=== PATIENT | female | born 1950 | race Caucasian/White ===

== ENCOUNTER 2019-03-01 10:32 | Emergency (ER) | payer MEDICARE, OTHER ==
[~2019-03-01] VITALS: Ht 167.6 cm; Wt 88.0 kg
[~2019-03-01 10:32] MED LIST: CARB200 PO; DIPH50 PO; HYDACE5 PO; PRED20 PO; RANI150 PO; ROSU10TA PO; TELM80/12.5 PO
[2019-03-01 12:31] LABS: BASOPHILS ABSOLUTE AUTO 0.02 K/mm3 (0.00-0.23); BASOPHILS PERCENT AUTO 0 % (0-2); EOSINOPHILS ABSOLUTE AUTO 0.04 K/mm3 (0.00-0.68); EOSINOPHILS PERCENT AUTO 1 % (0-6); Hematocrit 44.6 % (33.0-51.0); Hemoglobin 14.8 g/dL (11.5-16.0); IMMATURE GRAN ABSOLUTE AUTO 0.01 K/mm3 (0.00-0.10); IMMATURE GRAN PERCENT AUTO 0 % (0-1); LYMPHOCYTES ABSOLUTE AUTO 2.36 K/mm3 (0.84-5.20); LYMPHOCYTES PERCENT AUTO 34 % (21-46); MONOCYTES ABSOLUTE AUTO 0.67 K/mm3 (0.16-1.47); MONOCYTES PERCENT AUTO 10 % (4-13); Mean Corpuscular HGB 29.3 pg (26.0-34.0); Mean Corpuscular HGB Conc 33.2 g/dL (31.5-36.5); Mean Corpuscular Volume 88 fL (80-100); Mean Platelet Volume 11.3 fL (9.1-12.4); NEUTROPHILS ABSOLUTE AUTO 3.85 K/mm3 (1.96-9.15); NEUTROPHILS PERCENT AUTO 55 % (41-73); Platelet Count 242 K/mm3 (150-400); RDW Coefficient Variation 12.9 % (11.7-14.2); RDW Standard Deviation 41.6 fL (35.1-46.3); Red Blood Cell Count 5.05 M/mm3 (3.80-5.20); White Blood Cell Count 6.95 K/mm3 (4.00-11.30)
[2019-03-01 12:47] LABS: Alanine Aminotransfer (ALT/SGP 20 U/L (12-78); Albumin, Blood 4.2 g/dL (3.4-5.0); Albumin/Globulin Ratio 1.2 (0.8-1.8); Alk Phos 52 U/L (50-136); Anion Gap 7 mmol/L (6-16); Aspartate Aminotrans (AST/SGOT 12 U/L (12-37); Bilirubin, Total 0.3 mg/dL (0.1-1.0); Blood Urea Nitrogen 17 mg/dL (8-24); Bun/Creatinine Ratio 20.5 (12.0-20.0); CO2, Blood 24 mmol/L (21-32); Calcium, Blood 9.2 mg/dL (8.5-10.1); Chloride, Blood 109 mmol/L (98-108); Creatinine, Blood 0.83 mg/dL (0.40-1.00); Globulin, Blood 3.5 g/dL (2.2-4.0); Glomerular Filtration Rate >60 (60-); Glucose, Blood 92 mg/dL (70-99); Potassium, Blood 4.2 mmol/L (3.5-5.5); Sodium, Blood 140 mmol/L (136-145); Total Protein, Blood 7.7 g/dL (6.4-8.2)
[2019-03-01] MEDS ORDERED: LISI20 PO (12:57)
[2019-03-01] MEDS ORDERED: HYDR1TAB94 PO (17:03)
== END 2019-03-01 17:15 | disposition home or self-care (01) ==
LOC: ER 10:32
PROVIDERS: Physician Assistant
DX: R51 Headache (principal); I10 Essential (primary) hypertension; F17.210 Nicotine dependence, cigarettes, uncomplicated; Z87.39 Personal history of other diseases of the musculoskeletal system and connective tissue; Z88.5 Allergy status to narcotic agent; Z88.8 Allergy status to other drugs, medicaments and biological substances; Z91.030 Bee allergy status; Z79.899 Other long term (current) drug therapy
CPT/HCPCS: 36415; 70450; 80053; 85025; 96361; 96374; 96375; 99284-25; J0360; J1170; J1200; J1885; J2765; J7120

== ENCOUNTER 2019-03-17 14:55 | Emergency (ER) | payer MEDICARE, OTHER ==
[~2019-03-17] VITALS: Ht 167.6 cm; Wt 86.2 kg
[~2019-03-17 14:55] MED LIST changes: +HYDR1TAB94 PO; +LISI20 PO
[2019-03-17 15:36] LABS: BASOPHILS ABSOLUTE AUTO 0.04 K/mm3 (0.00-0.23); BASOPHILS PERCENT AUTO 0 % (0-2); EOSINOPHILS ABSOLUTE AUTO 0.03 K/mm3 (0.00-0.68); EOSINOPHILS PERCENT AUTO 0 % (0-6); Hematocrit 46.7 % (33.0-51.0); Hemoglobin 15.2 g/dL (11.5-16.0); IMMATURE GRAN ABSOLUTE AUTO 0.03 K/mm3 (0.00-0.10); IMMATURE GRAN PERCENT AUTO 0 % (0-1); LYMPHOCYTES ABSOLUTE AUTO 2.35 K/mm3 (0.84-5.20); LYMPHOCYTES PERCENT AUTO 23 % (21-46); MONOCYTES ABSOLUTE AUTO 0.79 K/mm3 (0.16-1.47); MONOCYTES PERCENT AUTO 8 % (4-13); Mean Corpuscular HGB 28.8 pg (26.0-34.0); Mean Corpuscular HGB Conc 32.5 g/dL (31.5-36.5); Mean Corpuscular Volume 88 fL (80-100); Mean Platelet Volume 11.4 fL (9.1-12.4); NEUTROPHILS ABSOLUTE AUTO 7.18 K/mm3 (1.96-9.15); NEUTROPHILS PERCENT AUTO 69 % (41-73); Platelet Count 288 K/mm3 (150-400); RDW Coefficient Variation 12.6 % (11.7-14.2); RDW Standard Deviation 41.2 fL (35.1-46.3); Red Blood Cell Count 5.28 M/mm3 (3.80-5.20); White Blood Cell Count 10.42 K/mm3 (4.00-11.30)
[2019-03-17 15:51] LABS: Alanine Aminotransfer (ALT/SGP 25 U/L (12-78); Albumin, Blood 4.2 g/dL (3.4-5.0); Albumin/Globulin Ratio 1.2 (0.8-1.8); Alk Phos 56 U/L (50-136); Anion Gap 7 mmol/L (6-16); Aspartate Aminotrans (AST/SGOT 7 U/L (12-37); Bilirubin, Total 0.4 mg/dL (0.1-1.0); Blood Urea Nitrogen 23 mg/dL (8-24); Bun/Creatinine Ratio 26.7 (12.0-20.0); CO2, Blood 25 mmol/L (21-32); Calcium, Blood 9.7 mg/dL (8.5-10.1); Chloride, Blood 107 mmol/L (98-108); Creatinine, Blood 0.86 mg/dL (0.40-1.00); Globulin, Blood 3.6 g/dL (2.2-4.0); Glomerular Filtration Rate >60 (60-); Glucose, Blood 125 mg/dL (70-99); Potassium, Blood 3.8 mmol/L (3.5-5.5); Sodium, Blood 139 mmol/L (136-145); Total Protein, Blood 7.8 g/dL (6.4-8.2)
[2019-03-17] MEDS ORDERED: VERA180ERB PO (16:20)
[2019-03-17] MEDS ORDERED: LISI20 PO (16:21)
[2019-03-17] MEDS ORDERED: Norco 5-325 Ta1 EACH PO (16:21)
[2019-03-17] MEDS ORDERED: COMPAZINE10 MG PO (16:38)
[2019-03-17] MEDS ORDERED: HYDMOR2 PO (16:38)
== END 2019-03-17 17:47 | disposition home or self-care (01) ==
LOC: ER 14:55
PROVIDERS: Emergency Medicine
DX: I10 Essential (primary) hypertension (principal); J44.9 Chronic obstructive pulmonary disease, unspecified; E78.5 Hyperlipidemia, unspecified; F17.210 Nicotine dependence, cigarettes, uncomplicated; Z79.899 Other long term (current) drug therapy
CPT/HCPCS: 36415; 70450; 80053; 85025; 93005; 93010; 96374; 96375; 96376; 99284-25; J0360; J0780; J1170; J1200; J2405

== ENCOUNTER → 2021-08-14 | Outpatient (CLI) | payer MEDICARE, OTHER ==
[~2021-08-14] MED LIST changes: +COMPAZINE10 MG PO; +HYDMOR2 PO; +Norco 5-325 Ta1 EACH PO; +VERA180ERB PO
== END ==
LOC: LAB SHORT 10:15 → LAB 10:15
DX: N30.00 Acute cystitis without hematuria (principal)
CPT/HCPCS: 87086

== ENCOUNTER 2023-08-12 12:21 | Emergency (ER) | payer MEDICARE, OTHER ==
[~2023-08-12] VITALS: Ht 167.6 cm; Wt 84.4 kg
[~2023-08-12 12:21] MED LIST changes: +GABA100 PO; +IRBE150 PO; +ONDA4 PO; +VERA240ER PO
[2023-08-12 12:42] VITALS: BP 154/110
[2023-08-12 13:13] LABS: BASOPHILS ABSOLUTE AUTO 0.04 K/mm3 (0.00-0.23); BASOPHILS PERCENT AUTO 0 % (0-2); EOSINOPHILS ABSOLUTE AUTO 0.03 K/mm3 (0.00-0.68); EOSINOPHILS PERCENT AUTO 0 % (0-6); Hematocrit 43.3 % (33.0-51.0); Hemoglobin 14.5 g/dL (11.5-16.0); IMMATURE GRAN ABSOLUTE AUTO 0.12 K/mm3 (0.00-0.10); IMMATURE GRAN PERCENT AUTO 1 % (0-1); LYMPHOCYTES PERCENT AUTO 24 % (21-46); MONOCYTES ABSOLUTE AUTO 2.54 K/mm3 (0.16-1.47); MONOCYTES PERCENT AUTO 21 % (4-13); Mean Corpuscular HGB 28.7 pg (26.0-34.0); Mean Corpuscular HGB Conc 33.5 g/dL (31.5-36.5); Mean Corpuscular Volume 86 fL (80-100); Mean Platelet Volume 10.8 fL (9.1-12.4); NEUTROPHILS ABSOLUTE AUTO 6.31 K/mm3 (1.96-9.15); NEUTROPHILS PERCENT AUTO 53 % (41-73); Platelet Count 253 K/mm3 (150-400); RDW Coefficient Variation 12.9 % (11.7-14.2); Red Blood Cell Count 5.06 M/mm3 (3.80-5.20); White Blood Cell Count 11.94 K/mm3 (4.00-11.30)
[2023-08-12 13:38] LABS: Albumin, Blood 3.4 g/dL (3.4-5.0); Albumin/Globulin Ratio 0.8 (0.8-1.8); Bilirubin, Total 0.5 mg/dL (0.1-1.0); Bun/Creatinine Ratio 16.7 (12.0-20.0); Creatinine, Blood 1.08 mg/dL (0.40-1.00); Globulin, Blood 4.4 g/dL (2.2-4.0); Potassium, Blood 4.5 mmol/L (3.5-5.5); Total Protein, Blood 7.8 g/dL (6.4-8.2)
[2023-08-12 14:08] LABS: Influenza A, PCR NEGATIVE (NEGATIVE); Influenza B, PCR NEGATIVE (NEGATIVE); Resp Syncytial Virus, PCR NEGATIVE (NEGATIVE)
[2023-08-12 14:09] LABS: SARS-Cov-2 (COVID-19) PCR, MMC POSITIVE (NEGATIVE)
[2023-08-12] MEDS ORDERED: ONDA4ODT MM (15:32)
== END 2023-08-12 15:36 | disposition home or self-care (01) ==
LOC: ER 12:21
PROVIDERS: Physician Assistant
DX: U07.1 COVID-19 (principal); J44.9 Chronic obstructive pulmonary disease, unspecified; I10 Essential (primary) hypertension; E78.5 Hyperlipidemia, unspecified; F17.210 Nicotine dependence, cigarettes, uncomplicated; G50.0 Trigeminal neuralgia; Z79.899 Other long term (current) drug therapy
CPT/HCPCS: 0241U; 71046; 80053; 83880; 85025; 93005; 93010; 99284-25

== ENCOUNTER 2024-11-10 22:27 | Inpatient (IN) | payer MEDICARE, OTHER ==
[~2024-11-10] VITALS: Ht 167.6 cm; Wt 86.1 kg
[~2024-11-10 22:27] MED LIST changes: +Avapro300 MG PO; -GABA100 PO; +GABA300 PO; -IRBE150 PO; +ONDA4ODT MM
[2024-11-10 22:47] LABS: Hematocrit 42.7 % (33.0-51.0); Hemoglobin 14.1 g/dL (11.5-16.0); Mean Corpuscular HGB 28.7 pg (26.0-34.0); Mean Corpuscular Volume 87 fL (80-100); Mean Platelet Volume 12.2 fL (9.1-12.4); Platelet Count 120 K/mm3 (150-400); RDW Coefficient Variation 14.1 % (11.7-14.2); RDW Standard Deviation 45.1 fL (35.1-46.3); Red Blood Cell Count 4.92 M/mm3 (3.80-5.20)
[2024-11-10 23:15] LABS: Albumin, Blood 3.6 g/dL (3.4-5.0); Bilirubin, Total 0.8 mg/dL (0.1-1.0); Bun/Creatinine Ratio 22.5 (12.0-20.0); Calcium, Blood 8.9 mg/dL (8.5-10.1); Creatinine, Blood 0.8 mg/dL (0.40-1.00); Globulin, Blood 3.6 g/dL (2.2-4.0); Potassium, Blood 4.9 mmol/L (3.5-5.5); Total Protein, Blood 7.2 g/dL (6.4-8.2)
[2024-11-10 23:23] LABS: Influenza B, PCR NEGATIVE (NEGATIVE); Resp Syncytial Virus, PCR NEGATIVE (NEGATIVE); SARS-Cov-2 (COVID-19) PCR, MMC NEGATIVE (NEGATIVE)
[2024-11-10 23:46] LABS: BAND PERCENT MAN 1 % (0-8); BASOPHILS PERCENT MAN 0 % (0-2); EOSINOPHILS PERCENT MAN 0 % (0-6); LYMPHOCYTES ABSOLUTE MAN 1.47 K/mm3 (0.84-5.20); LYMPHOCYTES PERCENT MAN 16 % (21-46); MONOCYTES ABSOLUTE MAN 1.74 K/mm3 (0.16-1.47); MONOCYTES PERCENT MAN 19 % (4-13); MYELOCYTE ABSOLUTE MAN 0.18 K/mm3 (0.00-0.00); MYELOCYTE PERCENT MAN 2 % (0-0); NEUTROPHILS ABSOLUTE MAN 5.79 K/mm3 (1.96-9.15); SEG NEUTROPHILS PERCENT MAN 62 % (41-73); TOTAL CELLS COUNTED 100
[2024-11-11 00:04] LABS: Influenza A, PCR POSITIVE (NEGATIVE)
[2024-11-11] MEDS ORDERED: Albuterol 2.5 MG/3 ML VIAL INH ONE (00:35)
[2024-11-11] MEDS ORDERED: Ondansetron HCl 2 MG / ML 2ML Vial IV PRN (01:25)
[2024-11-11] MEDS ORDERED: FLU VACC TS2024-25(6MOS UP)/PF 45 MCG/0.5 ML SYRINGE IM ONE (01:25)
[2024-11-11] MEDS ORDERED: Magnesium Hydroxide Conc 10 ML UDC PO PRN (01:25)
[2024-11-11] MEDS ORDERED: Ipratropium/Albuterol SulF 2.5-0.5MG/3 ML Amp INH SCH (01:30)
[2024-11-11] MEDS ORDERED: D5W-NS 1,000 ML IV SCH (02:00)
[2024-11-11] MEDS ORDERED: NS 1,000 ML IV SCH (02:00)
[2024-11-11] MEDS ORDERED: Ampicillin Sod/Sulbactam Sod 1.5 GM in NS 100 ML IV SCH (02:16)
[2024-11-11] MEDS ORDERED: Azithromycin 500 MG in NS 250 ML IV SCH (02:18)
[2024-11-11] MEDS ORDERED: Oseltamivir Phosphate 75 MG Cap PO ONE (02:21)
[2024-11-11 06:06] LABS: Hematocrit 41.1 % (33.0-51.0); Hemoglobin 13.9 g/dL (11.5-16.0); Mean Corpuscular HGB 28.7 pg (26.0-34.0); Mean Corpuscular HGB Conc 33.8 g/dL (31.5-36.5); Mean Corpuscular Volume 85 fL (80-100); Mean Platelet Volume 11.3 fL (9.1-12.4); Platelet Count 112 K/mm3 (150-400); RDW Standard Deviation 43.7 fL (35.1-46.3); Red Blood Cell Count 4.85 M/mm3 (3.80-5.20); White Blood Cell Count 14.67 K/mm3 (4.00-11.30)
[2024-11-11 06:25] LABS: BAND PERCENT MAN 11 % (0-8); BASOPHILS ABSOLUTE MAN 0.14 K/mm3 (0.00-0.23); BASOPHILS PERCENT MAN 1 % (0-2); EOSINOPHILS PERCENT MAN 0 % (0-6); LYMPHOCYTES % ATYPICAL MANUAL 1 % (0-0); LYMPHOCYTES ABSOLUTE MAN 0.88 K/mm3 (0.84-5.20); LYMPHOCYTES PERCENT MAN 5 % (21-46); MONOCYTES ABSOLUTE MAN 3.22 K/mm3 (0.16-1.47); MONOCYTES PERCENT MAN 22 % (4-13); NEUTROPHILS ABSOLUTE MAN 10.41 K/mm3 (1.96-9.15); SEG NEUTROPHILS PERCENT MAN 60 % (41-73); TOTAL CELLS COUNTED 100
[2024-11-11 06:30] LABS: Albumin, Blood 3.7 g/dL (3.4-5.0); Bilirubin, Total 0.8 mg/dL (0.1-1.0); Bun/Creatinine Ratio 19.2 (12.0-20.0); Calcium, Blood 8.7 mg/dL (8.5-10.1); Creatinine, Blood 0.83 mg/dL (0.40-1.00); Globulin, Blood 3.7 g/dL (2.2-4.0); Potassium, Blood 3.5 mmol/L (3.5-5.5); Total Protein, Blood 7.4 g/dL (6.4-8.2)
[2024-11-11] MEDS ORDERED: Sennosides 8.6 MG Tab PO SCH (09:00)
[2024-11-11] MEDS ORDERED: MethylPREDNISolone Sod Succ 125 MG Vial IV SCH (09:00)
[2024-11-11] MEDS ORDERED: Irbesartan 150 MG Tab PO SCH (09:00)
[2024-11-11] MEDS ORDERED: Enoxaparin 40 MG/0.4 ML SYR SC SCH (09:00)
[2024-11-11] MEDS ORDERED: Lactobacil 2-S.Thermo-Bifido 1 1 Cap PO SCH (09:00)
[2024-11-11 09:23] VITALS: BP 165/94
[2024-11-11] MEDS ORDERED: GABA300 PO (10:13)
[2024-11-11] MEDS ORDERED: IRBE75 PO (10:14)
[2024-11-11] MEDS ORDERED: Inderal40 MG PO (10:17)
[2024-11-11] MEDS ORDERED: AMLO5 PO (10:18)
[2024-11-11] MEDS ORDERED: NS 250 ML IV PRN (12:10)
[2024-11-11] MEDS ORDERED: Ipratropium/Albuterol SulF 2.5-0.5MG/3 ML Amp INH PRN (14:20)
[2024-11-11 14:50] VITALS: BP 141/73
--- NOTE | 2024-11-11 18:47 | NUR ---
SHIFT SUMMARY PT A&OX4, VSS, AMB W/ ASSIST, ON RA, TOLERATING MINIMAL PO, VOIDING, AND DENIED PAIN. CALL LIGHT WITHIN REACH AND PT ABLE TO MAKE NEEDS KNOWN.
[2024-11-11 19:36] VITALS: BP 148/88
[2024-11-11] MEDS ORDERED: Acetaminophen 500 MG Tab PO PRN (20:10)
[2024-11-11] MEDS ORDERED: Pramipexole DI-HCL 0.125 MG Tab PO SCH (21:00)
[2024-11-11] MEDS ORDERED: Oseltamvir Phosphate 30 MG Cap PO SCH (21:00)
[2024-11-12 02:36] VITALS: BP 150/80
--- NOTE | 2024-11-12 04:00 | NUR ---
AAOX4, X1 ASSIST WITH WALKER. HO-CHUNK AND WEARS GLASSES, BOTH ARE IN ROOM. RA. DROPLET PRECAUTIONS IN PLACE FOR INFLUENZA A. ORDER REC'D FOR BUNN @ BEGINING OF SHIFT, SEE MAR. RECEIVING UNASYN AND ZITHRO. PT SLEPT WELL THROUGHOUT THE NIGHT.
[2024-11-12 07:49] VITALS: BP 167/86
[2024-11-12] MEDS ORDERED: MethylPREDNISolone Sod Succ 125 MG Vial IV SCH (09:00)
[2024-11-12] MEDS ORDERED: Benzonatate 100 MG Cap PO PRN (10:35)
[2024-11-12 15:00] VITALS: BP 156/97
--- NOTE | 2024-11-12 17:57 | NUR ---
PT CONT LEVEL OF CARE WITH NO ACUTE CHANGES NOTED. PT NOTED TO BE A&O X4 AND INDEPENDENT WITH AMBULATION. PT NOTED TO BE ON ROOM AIR WITH SPO2 MAINTAINING IN LOW TO MID 90S. PT NOTED TO HAVE A NON PRODUCTIVE COUGH. PT WAS GIVEN TESSALON PEARLS THIS SHIFT WITH EFFECTIVENESS. PT IS TO CONT WITH IV ABT AND STEROIDS. POSSIBLE DC TOMORROW.
[2024-11-12] MEDS ORDERED: SYMBICORT 16010.2 GM INH (19:31)
[2024-11-12 19:38] VITALS: BP 175/92
--- NOTE | 2024-11-13 04:31 | NUR ---
SHIFT SUMMARY PATIENT HAS BEEN SLEEPING INTERMITTANTLY THROUGHOUT THE NIGHT. SHE IS ORIENTED X4. IV ABX HAVE INFUSED WITHOUT COMPLICATIONS. PATIENT HAS USED HER CALL LIGHT APPROPRIATELY. CALL LIGHT IS WITHIN REACH AND BED ALARM IS SET. SAFETY PRECAUTIONS ARE BEING MAINTAINED.
[2024-11-13 05:08] VITALS: BP 158/91
[2024-11-13 08:48] VITALS: BP 181/84
[2024-11-13 10:35] VITALS: BP 164/74
[2024-11-13 15:20] VITALS: BP 179/88
[2024-11-13] MEDS ORDERED: HydroCHLOROthiazide 25 mg Tab PO SCH (18:00)
--- NOTE | 2024-11-13 18:12 | NUR ---
PT AOX4 AND COOPERATIVE OF CARE. PT HAS BEEN INDEPENDENT IN ROOM AND CAN USE CALL LIGHT APPROPRIAELY. PT WAS TREATED FOR A COUGH PER EMAR. PT STARTED SHIFT WITH BP OF 181/[address] ORTEGA WAS NOTIFIED AND ADVISED TO GIVE AM MED PER EMAR AND RECHECH VITALS. PT THEN HAD BP OF 164/74 P84. END OF SHIFT VITALS AGAIN WERE HIGH WITH BP OF 179/[address] ORTEGA WAS NOTIFIED AND ADDED NEW BP MED TO EMAR. CALL LIGHT IS IN REACH WILL CONTINUE TO MONITOR.
[2024-11-13 19:46] VITALS: BP 171/73
--- NOTE | 2024-11-14 03:22 | NUR ---
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 DROPLET PRECAUTIONS IN PLACE. PT A&O X4, MAKES NEEDS KNOWN TO STAFF. CALLS APPROPRIATELY. MEDICATED WITH TESSALON PEARLS AT BEGINNING OF SHIFT PER EMAR ORDER; EFFECTIVE. SATS MAINTAINED ABOVE 90% ON ROOM AIR. NO ACUTE DISTRESS OR CHANGES T/O SHIFT. PT INDEPENDENT WITH CARES. CALL LIGHT IN REACH. BED IN LOWEST POSITION. CARES CONTINUE ORDERED.
[2024-11-14 03:42] VITALS: BP 167/88
--- NOTE | 2024-11-14 07:28 | NUR ---
AT APPROX 0630 PT HAD X1 EMESIS WITH APPROX 30ML OUT. ZOFRAN 4MG IV PRN GIVEN PER EMAR ORDER; EFFECTIVE.
[2024-11-14 08:01] VITALS: BP 159/98
[2024-11-14] MEDS ORDERED: PredniSONE 20 MG Tab PO SCH (09:00)
[2024-11-14] MEDS ORDERED: OSELTAMIVIR PHO3011 PO (10:54)
[2024-11-14] MEDS ORDERED: Prednisone20 MG PO (10:56)
[2024-11-14] MEDS ORDERED: DOXY100 PO (10:56)
--- NOTE | 2024-11-14 13:08 | NUR ---
PT DISCHARGED AT 1255 AOX4 AND COOPERATIVE OF CARE NO DISTRESS NOTED. PT HAD PAPERWORK REVIEWED AND EDUCATIONAL MATERIAL SENT WITH PT. ALL PERSONAL BELONGING COLLECTED AND PT TRANSPORTED OUT TO ENTRANCE WITH [facility] TO TRANSPORT.
== END 2024-11-14 12:34 | disposition home health service (06) | DRG 193 ==
LOC: ER 22:27 → ERHOLD 11-11 01:21 → MEDS 11-11 09:09
PROVIDERS: Emergency Medicine; Family Medicine; ADMIT Student in an Organized Health Care Education/Training Program
DX: J10.00 Influenza due to other identified influenza virus with unspecified type of pneumonia (principal); J96.01 Acute respiratory failure with hypoxia; J44.0 Chronic obstructive pulmonary disease with (acute) lower respiratory infection; J44.1 Chronic obstructive pulmonary disease with (acute) exacerbation; I10 Essential (primary) hypertension; G25.81 Restless legs syndrome; Z85.118 Personal history of other malignant neoplasm of bronchus and lung; E78.5 Hyperlipidemia, unspecified; Z90.710 Acquired absence of both cervix and uterus; Z90.722 Acquired absence of ovaries, bilateral; Z90.79 Acquired absence of other genital organ(s); Z90.49 Acquired absence of other specified parts of digestive tract; Z98.890 Other specified postprocedural states; Z87.891 Personal history of nicotine dependence; Z88.5 Allergy status to narcotic agent; Z88.8 Allergy status to other drugs, medicaments and biological substances; Z91.038 Other insect allergy status; Z79.899 Other long term (current) drug therapy
CPT/HCPCS: 0241U; 71046; 80053; 83735; 84145; 85025; 94640; 94664; 94760; 99285-25; A9270; J0295; J0456; J1650; J2405; J2919; J7050; J7512